=== PATIENT | female | born 1990 | race Two or more races ===

== ENCOUNTER 2023-01-09 08:40 | Emergency (ER) | payer MEDICAID ==
[~2023-01-09] VITALS: Ht 160 cm; Wt 76.0 kg
[2023-01-09 08:44] VITALS: TEMP 98.5
[2023-01-09] MEDS ORDERED: KETOROLAC TROMETHAMINE 60 MG/2 ML VIAL IM ONE (09:30)
[2023-01-09] MEDS ORDERED: METHOCARBAMOL 500 MG TABLET PO ONE (09:30)
[2023-01-09 10:00] VITALS: BP 126/83; PULSE 82; RESP 15
== END 2023-01-09 11:34 | disposition home or self-care (01) ==
LOC: EMS 08:41
DX: S13.4XXA Sprain of ligaments of cervical spine, initial encounter (principal); M25.511 Pain in right shoulder; W19.XXXA Unspecified fall, initial encounter; Y93.89 Activity, other specified; Y92.89 Other specified places as the place of occurrence of the external cause; Y99.8 Other external cause status
CPT/HCPCS: 99283; 73030; 96372; J1885

== ENCOUNTER 2025-03-15 05:39 | Emergency (ER) | payer MEDICAID ==
[~2025-03-15] VITALS: Ht 160 cm; Wt 79.5 kg
[2025-03-15 05:51] VITALS: BP 139/87; PULSE 70; RESP 16; TEMP 98.2; O2SAT 100
[2025-03-15] MEDS ORDERED: AZIT250T9 PO (06:15)
== END 2025-03-15 06:32 | disposition home or self-care (01) ==
LOC: EMS 05:43
DX: L08.9 Local infection of the skin and subcutaneous tissue, unspecified (principal); H92.01 Otalgia, right ear
CPT/HCPCS: 99283; Z7502